=== PATIENT | female | born 1960 | race Native Hawaiian/Other Pacific Islander ===

== ENCOUNTER 2016-07-16 23:16 | Emergency (ER) | payer BC, OTHER ==
[~2016-07-16] VITALS: Ht 157.5 cm; Wt 65.0 kg
[2016-07-16 23:34] VITALS: BP 133/83; PULSE 76; RESP 18; TEMP 98.3; O2SAT 97
[2016-07-16] MEDS ORDERED: statin (23:43)
[2016-07-16] MEDS ORDERED: MORPHINE SULFATE 4 MG/ML INJ IV PUSH ONE (23:45)
--- NOTE | 2016-07-17 00:26 | RADRPT ---
EXAM DATE/TIME: 07/17/2016 00:10 [facility] COMPARISON: No previous studies available for comparison. INDICATIONS : Trauma; fall. Possible seizure. RADIATION DOSE: 56.35 CTDIvol (mGy) MEDICAL HISTORY : Hypercholesterolemia. SURGICAL HISTORY : Tonsillectomy. face lift ENCOUNTER: Initial ACUITY: 1 day PAIN SCALE: 4/10 LOCATION: cranial TECHNIQUE: Multiple contiguous axial images were obtained of the head. Using automated exposure control and adj ustment of the mA and/or kV according to patient size, radiation dose was kept as low as reasonably a chievable to obtain optimal diagnostic quality images. FINDINGS: CEREBRUM: The ventricles are normal for age. No evidence of midline shift, mass lesion, hemorrhage or acute in farction. No extra-axial fluid collections are seen. POSTERIOR FOSSA: The cerebellum and brainstem are intact. The 4th ventricle is midline. The cerebellopontine angle i s unremarkable. EXTRACRANIAL: The visualized portion of the orbits is intact. SKULL: The calvaria is intact. No evidence of skull fracture. CONCLUSION: Normal examination. Lino Jacques MD on July 17, 2016 at 0:22 Board Certified Radiologist. This report was verified electronically.
--- NOTE | 2016-07-17 00:32 | RADRPT ---
EXAM DATE/TIME: 07/17/2016 00:10 [facility] COMPARISON: No previous studies available for comparison. INDICATIONS : Trauma; fall. RADIATION DOSE: 21.96 CTDIvol (mGy) MEDICAL HISTORY : Hypercholesterolemia. SURGICAL HISTORY : Total knee replacement, right. face lift ENCOUNTER: Initial ACUITY: 1 day PAIN SCORE: 4/10 LOCATION: facial TECHNIQUE: Volumetric scanning of the facial bones was performed. Using automated exposure control and adjustme nt of the mA and/or kV according to patient size, radiation dose was kept as low as reasonably achiev able to obtain optimal diagnostic quality images. FINDINGS: No acute facial bone fracture. Small retention cyst left maxillary sinus. Paranasal sinuses otherwise clear. There is left periorbital soft tissue swelling extending over the left malar eminence. CONCLUSION: 1. No acute fracture. Left-sided facial swelling. Lino Jacques MD on July 17, 2016 at 0:25 Board Certified Radiologist. This report was verified electronically.
--- NOTE | 2016-07-17 00:35 | RADRPT ---
EXAM DATE/TIME: 07/17/2016 00:10 [facility] COMPARISON: No previous studies available for comparison. INDICATIONS : Trauma; fall. RADIATION DOSE: 24.13 CTDIvol (mGy) MEDICAL HISTORY : Hypercholesterolemia. SURGICAL HISTORY : Tonsillectomy. face lift ENCOUNTER: Initial ACUITY: 1 day PAIN SCALE: 4/10 LOCATION: neck TECHNIQUE: Volumetric scanning of the cervical spine was performed. Multiplanar reconstructions in the sagittal, coronal and oblique axial planes were performed. Using automated exposure control and adjustment o f the mA and/or kV according to patient size, radiation dose was kept as low as reasonably achievable to obtain optimal diagnostic quality images. FINDINGS: VERTEBRAE: Normal vertebral body height. ALIGNMENT: No evidence of subluxation. C2-C3: The bony spinal canal is normal in size. No evidence of disc bulge or herniation. The neural forami na are bilaterally patent. C3-C4: The bony spinal canal is normal in size. No evidence of disc bulge or herniation. The neural forami na are bilaterally patent. C4-C5: The bony spinal canal is normal in size. No evidence of disc bulge or herniation. The neural forami na are bilaterally patent. C5-C6: The bony spinal canal is normal in size. No evidence of disc bulge or herniation. The neural forami na are bilaterally patent. C6-C7: The bony spinal canal is normal in size. No evidence of disc bulge or herniation. The neural forami na are bilaterally patent. C7-T1: The bony spinal canal is normal in size. No evidence of disc bulge or herniation. The neural forami na are bilaterally patent. CONCLUSION: Normal examination for a patient of this age. Lino Jacques MD on July 17, 2016 at 0:31 Board Certified Radiologist. This report was verified electronically.
--- NOTE | 2016-07-17 00:38 | RADRPT ---
EXAM DATE/TIME: 07/17/2016 00:03 [facility] COMPARISON: No previous studies available for comparison. INDICATIONS : Trauma, fall. MEDICAL HISTORY : None. SURGICAL HISTORY : None. ENCOUNTER: Initial ACUITY: 1 day PAIN SCORE: 5/10 LOCATION: Left chest FINDINGS: Multiple views of the left ribs were performed. There is no evidence of displaced fracture. No dest ructive lesions or areas of periosteal thickening are seen. Expiratory view of the chest is negative for pneumothorax. The mediastinal structures are midline. CONCLUSION: No acute disease. Lino Jacques MD on July 17, 2016 at 0:34 Board Certified Radiologist. This report was verified electronically.
--- NOTE | 2016-07-17 00:40 | RADRPT ---
EXAM DATE/TIME: 07/17/2016 00:08 [facility] COMPARISON: No previous studies available for comparison. INDICATIONS : Trauma, fall. MEDICAL HISTORY : None. SURGICAL HISTORY : None. ENCOUNTER: Initial ACUITY: 1 day PAIN SCORE: 4/10 LOCATION: Left hand. FINDINGS: Three view examination of the left hand demonstrates no soft tissue swelling, dislocation, or fractur e. The carpal bones appear intact. Mild to moderate osteoarthritis predominantly in the distal inte rphalangeal joints. Bony mineralization is normal. CONCLUSION: 1. No acute findings. [id number] osteoarthritis at the left hand. Lino Jacques MD on July 17, 2016 at 0:36 Board Certified Radiologist. This report was verified electronically.
--- NOTE | 2016-07-17 00:41 | RADRPT ---
EXAM DATE/TIME: 07/17/2016 00:11 [facility] COMPARISON: No previous studies available for comparison. INDICATIONS : Trauma, fall. MEDICAL HISTORY : None. SURGICAL HISTORY : None. ENCOUNTER: Initial ACUITY: 1 day PAIN SCORE: 4/10 LOCATION: Right hand. FINDINGS: Three view examination of the right hand demonstrates no soft tissue swelling, dislocation, or fractu re. The carpal bones appear intact. Osteoarthritis of the interphalangeal joints. Bony mineralizati on is normal. CONCLUSION: 1. No acute findings. Osteoarthritis at the interphalangeal joints. Lino Jacques MD on July 17, 2016 at 0:38 Board Certified Radiologist. This report was verified electronically.
[2016-07-17] MEDS ORDERED: IBUP-232 PO (01:42)
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
--- NOTE | 2016-07-17 02:43 | RADRPT ---
EXAM DATE/TIME: 07/17/2016 01:51 [facility] COMPARISON: No previous studies available for comparison. INDICATIONS : Fall. MEDICAL HISTORY : None. SURGICAL HISTORY : None. ENCOUNTER: Initial ACUITY: 1 day PAIN SCORE: 0/10 LOCATION: Bilateral back FINDINGS: There are five non-rib bearing vertebral bodies. Minimal degenerative retrolisthesis of L3 on L4. Mod erate degenerative disc disease. The posterior elements are intact without evidence of spondylolysis. The pedicles are intact. Bony mineralization is slightly decreased. CONCLUSION: 1. No acute fracture. Moderate degenerative disc disease. Minimal degenerative retrolisthesis of L3 o n L4. Slight decrease in bone mineralization. Lino Jacques MD on July 17, 2016 at 2:40 Board Certified Radiologist. This report was verified electronically.
== END 2016-07-17 03:51 | disposition home or self-care (01) ==
LOC: NEPA 23:16
DX: M79.1 Myalgia (principal); S00.91XA Abrasion of unspecified part of head, initial encounter; M54.5 Low back pain; R07.81 Pleurodynia; E78.00 Pure hypercholesterolemia, unspecified; W03.XXXA Other fall on same level due to collision with another person, initial encounter; Y93.89 Activity, other specified; Y92.511 Restaurant or cafe as the place of occurrence of the external cause; Y99.9 Unspecified external cause status
CPT/HCPCS: 70450; 70486; 71101; 72110; 72125; 73130; J2270; 96374